=== PATIENT | male | born 1975 | race Caucasian/White ===

== ENCOUNTER 2019-12-26 13:54 | Outpatient (CLI) | payer MEDICARE, SELFPAY ==
[2019-12-26 14:54] LABS: Alanine Aminotransferase 34 U/L (4-50); Albumin Level 4.7 g/dL (3.5-5.1); Alkaline Phosphatase 83 U/L (38-126); Aspartate Amino Transferase 36 U/L (17-59); Bilirubin,Total 0.6 mg/dL (0.2-1.3); Blood Urea Nitrogen 9 mg/dL (9-20); Calcium 9.5 mg/dL (8.4-10.2); Carbon Dioxide 24 mmol/L (22-30); Chloride 99 mmol/L (98-107); Estimated Glomerular Filt Rate > 60; Glucose 89 mg/dL (75-110); Potassium 4.3 mmol/L (3.4-5.0); Sodium 137 mmol/L (137-145)
[2019-12-26 14:56] LABS: Alanine Aminotransferase 35 U/L (4-50); Albumin Level 4.8 g/dL (3.5-5.1); Alkaline Phosphatase 84 U/L (38-126); Aspartate Amino Transferase 35 U/L (17-59); Bilirubin,Total 0.6 mg/dL (0.2-1.3)
== END 2019-12-26 13:55 | disposition home or self-care (01) ==
LOC: ANHLAB 14:01
PROVIDERS: PCP Internal Medicine; Visit Provider Internal Medicine
DX: F31.75 Bipolar disorder, in partial remission, most recent episode depressed (principal); Z79.899 Other long term (current) drug therapy
CPT/HCPCS: 36415; 80053; 80076; 82248

== ENCOUNTER 2020-12-30 12:54 | Outpatient (CLI) | payer MEDICARE, MEDICAID, SELFPAY ==
[2020-12-30 13:40] LABS: Alanine Aminotransferase 20 U/L (4-50); Albumin Level 4.2 g/dL (3.5-5.1); Alkaline Phosphatase 90 U/L (38-126); Anion Gap 7 mmol/L (8-16); Aspartate Amino Transferase 27 U/L (17-59); Bilirubin,Total 0.4 mg/dL (0.2-1.3); Blood Urea Nitrogen 7 mg/dL (9-20); Calcium 9.2 mg/dL (8.4-10.2); Carbon Dioxide 27 mmol/L (22-30); Chloride 105 mmol/L (98-107); Cholesterol 193 mg/dL (0-200); Estimated Glomerular Filt Rate > 60; Glucose 101 mg/dL (75-110); HDL Direct 69 mg/dL; Potassium 4.5 mmol/L (3.4-5.0); Sodium 139 mmol/L (137-145); Triglycerides 171 mg/dL (<150)
[2020-12-30 13:50] LABS: LDL Cholesterol Direct 98 mg/dL
== END 2020-12-30 12:55 | disposition home or self-care (01) ==
LOC: ANHLAB 12:56
PROVIDERS: PCP Internal Medicine; Visit Provider Nurse Practitioner
DX: E78.2 Mixed hyperlipidemia (principal); I10 Essential (primary) hypertension
CPT/HCPCS: 36415; 80053; 80061

== ENCOUNTER 2021-02-07 15:25 | Emergency (ER) | payer MEDICARE, MEDICAID, SELFPAY ==
--- NOTE | ~2021-02-07 | XR_ITS ---
XR wrist RT min 3V 02/07/2021 16:00 INDICATION: Right wrist pain PROCEDURE: 4 views right wrist COMPARISON: No prior studies for comparison. FINDINGS: Fracture, dislocation or subluxation is not identified. The soft tissues appear within norm al limits. No foreign bodies are identified. IMPRESSION: 1: NO ACUTE BONE OR JOINT ABNORMALITY IDENTIFIED. Reviewed, dictated and finalized at location B.
--- NOTE | ~2021-02-07 | XR_ITS ---
XR shoulder RT min 2V 02/07/2021 16:00 INDICATION: Right shoulder pain PROCEDURE: 4 views right shoulder COMPARISON: No prior studies for comparison. FINDINGS: Fracture, dislocation or subluxation is not identified. The soft tissues appear within norm al limits. No foreign bodies are identified. IMPRESSION: 1: NO ACUTE BONE OR JOINT ABNORMALITY IDENTIFIED. Reviewed, dictated and finalized at location B.
--- NOTE | 2021-02-07 15:35 | ED.GENADULT ---
HPI - General Adult General Chief complaint: Extremity Injury, Upper Stated complaint: WRIST/ROTATOR CUFF INJURY Time Seen by Provider: 02/07/21 15:38 Source: patient and RN notes reviewed Mode of arrival: ambulatory Limitations: no limitations History of Present Illness HPI narrative: 45-year-old male presents with complaints of right wrist weakness and tenderness for the past 5 days. Mendoza reports throwing darts and awaken the next morning with decrease movement and tenderness of RT wrist. Wrist brace with some relief. No known injury. No numbness or tingling. No radiating pain. No swelling. No immobility, suspected foreign body, or abuse. Exacerbating factors consist of movement and picking up items. The relieving factor is wrist brace. The dominant hand is the Right Hand. Remains active. The patient reports he have not been diagnosed with COVID-19. The patient reports he is not waiting for the results of a COVID-19 lab test. The patient reports he do not have chills, weakness, or fatigue. The patient reports he do not have a new or worsening cough or shortness of breath. Denies chest pain. The patient reports he do not have any rhinorrhea, congestion, loss of taste or smell, sore throat, nausea, vomiting, abdominal pain, and diarrhea. Tolerating po intake well. Denies recent traveling. Denies concerns for COVID-19 or exposures been home with limited outdoor exposure except for essential household needs and return home. At this time, patient is not suspected of having COVID-19. Complaints of right shoulder grinding for the past 10 years. Mendoza reports concerns of fractured humerus. Hurts with movement of shoulder. Denies radiating pain. No loss of mobility. No swelling. Exacerbating factor is movement. Relieving factor is rest. Some parts of this dictation were generated by voice recognition software and may contain typographical and/or grammatical inaccuracies. Related Data Home Medications Medication Instructions Recorded Confirmed aspirin 81 mg tablet,delayed 81 mg PO DAILY 01/02/21 01/02/21 release folic acid 400 mcg tablet 0.4 mg PO BID tablet 01/02/21 01/02/21 Allergies Allergy/AdvReac Type Severity Reaction Status Date / Time CEPHALEXIN MONOHYDRATE Allergy Unknown RASH Uncoded 01/02/21 14:10 Review of Systems Review of Systems: Narrative: CONSTITUTIONAL: Denies fever, chills, sweats. EYES: Denies visual changes, redness, discharge. ENT: Denies rhinorrhea, congestion, sore throat, otalgia. CARDIOVASCULAR: Denies chest pain, palpitations, edema. RESPIRATORY: Denies dyspnea, wheezing, cough. GASTROINTESTINAL: Denies abdominal pain, nausea, vomiting, diarrhea. SKIN: Denies rash or itching. MUSCULOSKELETAL: Denies acute back pain or myalgia. Complains of right shoulder grinding and wrist weakness and tenderness. NEUROLOGIC: Denies numbness or focal weakness. PSYCHIATRIC: Denies anxiety or depression. All other systems reviewed & are unremarkable except as noted in HPI and below. [facility] Past Medical History Medical History (Updated 02/08/21 @ 00:00 by [facility] Dabeat[facility]) Alcohol use, unspecified with unspecified alcohol-induced disorder Anxiety Bipolar II disorder Chronic fatigue Essential (primary) hypertension Mixed hyperlipidemia Nicotine abuse Tremor Surgical History Surgical History (Updated 02/07/21 @ 16:29 by GIULIA Awad) No significant past surgical history Family History Family History Mother Patient's mother is in good health Sibling Patient's sister is in good health Patient's brother is in good health Father Patient's father is Acute myocardial infarction Social History Social History (Updated 02/07/21 @ 16:30 by GIULIA Awad) Smoking packs per day: 1.5 Smoking cigarettes per day: 30.0 Years smoked: 34 Smoking pack-years: 51.00 Smoking s
[2021-02-07 15:41] VITALS: BP 134/91; PULSE 114; RESP 20; TEMP 37.2; O2SAT 100
[2021-02-07] MEDS: KETOROLAC (*BKC) 60 MG/2 ML VIAL IM (16:10)
== END 2021-02-07 16:30 | disposition home or self-care (01) ==
PROVIDERS: Emergency Provider Nurse Practitioner Family; PCP Internal Medicine
DX: M25.531 Pain in right wrist (principal); M25.511 Pain in right shoulder; F17.210 Nicotine dependence, cigarettes, uncomplicated; I10 Essential (primary) hypertension; E78.2 Mixed hyperlipidemia; F31.9 Bipolar disorder, unspecified; F41.9 Anxiety disorder, unspecified; Z79.82 Long term (current) use of aspirin
CPT/HCPCS: 73030; 73110; 96372; 99214; G0463; J1885

== ENCOUNTER 2021-06-28 11:46 | Outpatient (CLI) | payer MEDICARE, MEDICAID, SELFPAY ==
[2021-06-28 12:22] LABS: Alanine Aminotransferase 27 U/L (4-50); Albumin Level 4.8 g/dL (3.5-5.1); Alkaline Phosphatase 87 U/L (38-126); Anion Gap 10 mmol/L (8-16); Aspartate Amino Transferase 33 U/L (17-59); Bilirubin,Total 0.6 mg/dL (0.2-1.3); Blood Urea Nitrogen 7 mg/dL (9-20); Calcium 9.7 mg/dL (8.4-10.2); Carbon Dioxide 24 mmol/L (22-30); Chloride 102 mmol/L (98-107); Cholesterol 257 mg/dL (0-200); Estimated Glomerular Filt Rate > 60; Glucose 106 mg/dL (65-110); HDL Direct 76 mg/dL; Potassium 4.8 mmol/L (3.4-5.0); Sodium 136 mmol/L (137-145); Triglycerides 189 mg/dL (<150)
[2021-06-28 12:33] LABS: LDL Cholesterol Direct 122 mg/dL
== END 2021-06-28 11:47 | disposition home or self-care (01) ==
LOC: ANHLAB 11:48
PROVIDERS: PCP Internal Medicine; Visit Provider Nurse Practitioner
DX: E78.2 Mixed hyperlipidemia (principal)
CPT/HCPCS: 36415; 80053; 80061

== ENCOUNTER 2022-01-19 11:13 | Outpatient (CLI) | payer MEDICARE, MEDICAID, SELFPAY ==
[2022-01-19 12:00] LABS: Alanine Aminotransferase 23 U/L (4-50); Albumin Level 4.7 g/dL (3.5-5.1); Alkaline Phosphatase 90 U/L (38-126); Anion Gap 8 mmol/L (8-16); Aspartate Amino Transferase 34 U/L (17-59); Bilirubin,Total 0.7 mg/dL (0.2-1.3); Blood Urea Nitrogen 8 mg/dL (9-20); Calcium 9.1 mg/dL (8.4-10.2); Carbon Dioxide 25 mmol/L (22-30); Chloride 105 mmol/L (98-107); Cholesterol 297 mg/dL (0-200); Estimated Glomerular Filt Rate > 60; Glucose 115 mg/dL (65-110); HDL Direct 51 mg/dL; Potassium 4.4 mmol/L (3.4-5.0); Sodium 138 mmol/L (137-145); Triglycerides 470 mg/dL (<150)
[2022-01-19 12:07] LABS: LDL Cholesterol Direct 138 mg/dL
== END 2022-01-19 11:14 | disposition home or self-care (01) ==
PROVIDERS: PCP Internal Medicine; Visit Provider Nurse Practitioner
DX: E78.2 Mixed hyperlipidemia (principal)
CPT/HCPCS: 36415; 80053; 80061

== ENCOUNTER 2022-10-14 11:06 | Outpatient (CLI) | payer MEDICARE, MEDICAID, SELFPAY ==
[2022-10-14 11:52] LABS: Hemoglobin A1C 5.2 % (<5.7)
[2022-10-14 11:57] LABS: Alanine Aminotransferase 57 U/L (6-50); Albumin Level 4.6 g/dL (3.5-5.1); Alkaline Phosphatase 93 U/L (38-126); Anion Gap 7 mmol/L (8-16); Aspartate Amino Transferase 51 U/L (17-59); Bilirubin,Total 0.4 mg/dL (0.2-1.3); Blood Urea Nitrogen 6 mg/dL (9-20); Calcium 8.8 mg/dL (8.4-10.2); Carbon Dioxide 27 mmol/L (22-30); Chloride 101 mmol/L (98-107); Cholesterol 180 mg/dL (0-200); Estimated Glomerular Filt Rate > 60; Glucose 89 mg/dL (65-110); HDL Direct 81 mg/dL; Potassium 4.8 mmol/L (3.4-5.0); Sodium 135 mmol/L (137-145); Triglycerides 166 mg/dL (<150)
[2022-10-14 12:08] LABS: LDL Cholesterol Direct 60 mg/dL
== END 2022-10-14 11:07 | disposition home or self-care (01) ==
PROVIDERS: PCP Internal Medicine; Visit Provider Nurse Practitioner
DX: E78.2 Mixed hyperlipidemia (principal); R73.01 Impaired fasting glucose
CPT/HCPCS: 36415; 80053; 80061; 83036